=== PATIENT | female | born 1955 | race Asian ===

== ENCOUNTER 2019-10-24 18:55 | Inpatient (IN) | payer OTHER ==
[~2019-10-24] VITALS: Ht 157.5 cm; Wt 59.1 kg
[2019-10-24 20:05] LABS: PROTHROMBIN TIME 11.7 SECONDS (9.7-12.8)
[2019-10-24 20:30] LABS: BASO % 0.2 % (0.0-2.0); GRAN # 5.4 (1.4-6.5); GRAN % 83.2 % (42.2-75.2); HEMATOCRIT 35.4 % (37.0-47.0); HEMOGLOBIN 12.6 g/dl (12.5-16.0); LYMPH # 0.6 (1.2-3.4); LYMPH % 9.3 % (20.0-51.0); MEAN CELL VOLUME 84 fl (80.0-100.0); MEAN CORPUSCULAR HEMOGLOBIN 30 pg (27.0-31.0); MEAN CORPUSCULAR HGB CONC 36 g/dl (33.0-37.0); MONO # 0.5 (0.1-0.6); PLATELET COUNT 279 K/mm3 (130-400); REDCELL DISTRIBUTION WIDTH-CV 12.2 % (11.5-14.5)
[2019-10-24 21:07] LABS: ALANINE AMINOTRANSFERASE 16 U/L (4-34); ALKALINE PHOSPHATASE 82 U/L (50-136); ANION GAP 9 mmol/L (7-16); AST,SGOT 24 U/L (15-37); BILIRUBIN,TOTAL 0.8 mg/dL (0.0-1.0); BLOOD UREA NITROGEN 15 mg/dL (7-17); CALCIUM 8.5 mg/dL (8.4-10.2); CARBON DIOXIDE 26 mmol/L (22-30); CREATININE, serum 0.55 (0.52-1.25); GLUCOSE 138 mg/dL (74-106); LIPASE 62 U/L (23-300); POTASSIUM 3.1 mmol/L (3.4-5.0); SODIUM 123 mmol/L (137-145); TOTAL PROTEIN 7.3 gm/dL (6.4-8.2)
[2019-10-24 21:09] LABS: C-REACTIVE PROTEIN < 0.5 mg/dL (0.0-0.9); CHLORIDE 87 mmol/L (98-107)
--- NOTE | 2019-10-24 23:10 | NUR ---
Received patient from ER via wheelchair. Patient is alert and oriented. She went straight to the restroom to vomit. Patient has been nauseous and Zofran has been given prior transferring to room. With INT on left AC. Denies any pain. Informed patient that she's on NPO by midnight. She is independent and no problems in ambulating. Call light within reach.
[2019-10-24 23:28] VITALS: BP 153/95; PULSE 68; TEMP 98.1
[2019-10-25] VITALS (12 sets, daily range): BP systolic 112–152; BP diastolic 57–82; PULSE 71–95; TEMP 98–99.6
--- NOTE | 2019-10-25 01:00 | NUR ---
Informed patient that we will be replacing her potassium since it's low as well as her Magnesium. Instructed patient not to flush her urine as we will monitor her intake and output. Hat was placed in the toilet bowl. Patient shows understanding.
[2019-10-25 02:25] LABS: HEMOGLOBIN 11.9 g/dl (12.5-16.0)
[2019-10-25 02:31] LABS: HEMATOCRIT 33.8 % (37.0-47.0)
[2019-10-25 02:34] LABS: CALCIUM 8.2 mg/dL (8.4-10.2); CREATININE, serum 0.47 (0.52-1.25); POTASSIUM 3.2 mmol/L (3.4-5.0)
[2019-10-25 06:32] LABS: BASO % 0.2 % (0.0-2.0); GRAN # 4.7 (1.4-6.5); GRAN % 72.2 % (42.2-75.2); HEMOGLOBIN 11.7 g/dl (12.5-16.0); LYMPH # 0.9 (1.2-3.4); LYMPH % 13.7 % (20.0-51.0); MEAN CELL VOLUME 86 fl (80.0-100.0); MEAN CORPUSCULAR HEMOGLOBIN 30 pg (27.0-31.0); MEAN CORPUSCULAR HGB CONC 35 g/dl (33.0-37.0); MEAN PLATELET VOLUME 9.1 fl (7.4-10.4); MONO # 0.9 (0.1-0.6); MONO % 13.7 % (1.7-9.3); PLATELET COUNT 261 K/mm3 (130-400); RED BLOOD COUNT 3.88 M/mm3 (4.10-5.30); REDCELL DISTRIBUTION WIDTH-CV 12.3 % (11.5-14.5)
[2019-10-25 06:33] LABS: HEMATOCRIT 33.5 % (37.0-47.0)
--- NOTE | 2019-10-25 06:34 | NUR ---
Patient states she doesn't have nausea and vomiting right now. Potassium was replaced. Patient had a good urine output. Denies any pain. Will endorse to day shift nurse.
[2019-10-25 06:46] LABS: CALCIUM 8.4 mg/dL (8.4-10.2); CREATININE, serum 0.58 (0.52-1.25); POTASSIUM 3.8 mmol/L (3.4-5.0)
--- NOTE | 2019-10-25 10:11 | NUR ---
PT TO ROOM 352 PER CART WITH REPORT FROM [facility] @ 2994. PT IS A/O X3, LUNGS CLEAR, BOWEL SOUNDS ACTIVE. PT DENIES PAIN, JELLO AND WATER PROVIDED PER PT REQUEST. RESUME GENERAL DIET AND POSSIBLE DISCHARGE LATER TODAY.
[2019-10-25] MEDS ORDERED: PROTONIX 40MG T40 MG PO (10:29)
--- NOTE | 2019-10-25 10:42 | NUR ---
Patient returned from getting her procedure this AM. Denies any pain at this time. No nausea. Patient very talkative and currently resting in bed with call light in reach. Will continue to monitor.
--- NOTE | 2019-10-25 11:13 | NUR ---
Php Magento Developer attended clinical rounds with the team and patient to discharge home today. SW met with patient following rounds to discuss discharge planning. Patient lives in [place] with her , Yung (ph#[phone]). Patient receives primary care and obtains medications from [facility] with no difficulties. Patient does not use any DME and reports independence with ADLS. Patient does not have DPOA-HC and was not interested in obtaining form at this time. Patient's will package pick up patient this afternoon after work. No needs at this time.
--- NOTE | 2019-10-25 17:52 | NUR ---
Patient Health Summary, Discharge Summary and Home meds printed and reviewed with patient. Stressed importance of follow up appointments. Patient will be going to see a PCP at [facility] instead of Dr. Vern Saldaña. Belongings gathered by NATALIA/Theodora. Patient transported via walking with INSERTING PRESS OPERATOR and seatbelted for ride home with .
--- NOTE | 2019-10-25 18:27 | NUR ---
Patient now leaving the facility with TRUER PINION AND WHEEL walking her down to meet her at the ER entrance. Patient denied any questions.
== END 2019-10-25 18:29 | disposition home or self-care (01) | DRG 378 ==
LOC: COL.ER 18:55 → MEDICAL 22:36
PROVIDERS: Emergency Medicine; Nurse Practitioner Family; ADMIT Hospitalist
DX: K25.4 Chronic or unspecified gastric ulcer with hemorrhage (principal); E87.2 Acidosis; E87.1 Hypo-osmolality and hyponatremia; E87.6 Hypokalemia; R73.9 Hyperglycemia, unspecified; I10 Essential (primary) hypertension; K76.89 Other specified diseases of liver; E83.42 Hypomagnesemia; Z90.710 Acquired absence of both cervix and uterus
CPT/HCPCS: 99222-AI; 99239; C9113; J1170; J2405; J2704; J3475; J3480; J7030; Q9967

== ENCOUNTER 2019-12-18 13:25 | Emergency (ER) | payer MEDICARE, OTHER ==
[~2019-12-18] VITALS: Ht 157.5 cm; Wt 59.1 kg
[~2019-12-18 13:25] MED LIST: PROTONIX 40MG T40 MG PO
[2019-12-18 13:28] VITALS: TEMP 97.9
[2019-12-18 14:23] LABS: BASO % 0.2 % (0.0-2.0); GRAN # 4.3 (1.4-6.5); GRAN % 81.6 % (42.2-75.2); HEMATOCRIT 37.8 % (37.0-47.0); HEMOGLOBIN 13.1 g/dl (12.5-16.0); LYMPH # 0.6 (1.2-3.4); LYMPH % 11.9 % (20.0-51.0); MEAN CELL VOLUME 85 fl (80.0-100.0); MEAN CORPUSCULAR HEMOGLOBIN 30 pg (27.0-31.0); MEAN CORPUSCULAR HGB CONC 35 g/dl (33.0-37.0); MEAN PLATELET VOLUME 8.8 fl (7.4-10.4); MONO # 0.3 (0.1-0.6); MONO % 6.1 % (1.7-9.3); PLATELET COUNT 272 K/mm3 (130-400); RED BLOOD COUNT 4.43 M/mm3 (4.10-5.30); REDCELL DISTRIBUTION WIDTH-CV 12.6 % (11.5-14.5)
[2019-12-18 14:37] LABS: ALANINE AMINOTRANSFERASE 18 U/L (4-34); ALBUMIN 4.5 gm/dL (3.5-5.0); ALKALINE PHOSPHATASE 99 U/L (50-136); ANION GAP 15 mmol/L (7-16); AST,SGOT 26 U/L (15-37); BILIRUBIN,TOTAL 0.9 mg/dL (0.0-1.0); BLOOD UREA NITROGEN 14 mg/dL (7-17); CALCIUM 9.5 mg/dL (8.4-10.2); CARBON DIOXIDE 19 mmol/L (22-30); CHLORIDE 99 mmol/L (98-107); CREATININE, serum 0.65 (0.52-1.25); GLUCOSE 123 mg/dL (74-106); LIPASE 129 U/L (23-300); POTASSIUM 3.4 mmol/L (3.4-5.0); SODIUM 133 mmol/L (137-145); TOTAL PROTEIN 8.3 gm/dL (6.4-8.2)
[2019-12-18 14:48] LABS: TROPONIN-I < 0.012 ng/mL (0.000-0.035)
[2019-12-18] MEDS ORDERED: ZOFRAN ODT4 MG PO (14:48)
[2019-12-18] MEDS ORDERED: PHENERGAN 25 TA25 MG PO (14:48)
[2019-12-18 15:25] LABS: COLLECTION METHOD CLEAN CATCH
[2019-12-18 15:44] LABS: BUDDING YEAST Present /hpf; MUCOUS Present /lpf; PH 7 (5-8); SQUAMOUS EPITHELIAL None Seen /hpf; URINE APPEARANCE Hazy; URINE BACTERIA None Seen /hpf; URINE BILIRUBIN Negative (NEGATIVE); URINE BLOOD Negative (NEGATIVE); URINE COLOR Straw; URINE GLUCOSE Negative (NEGATIVE); URINE KETONE 2+ (NEGATIVE); URINE LEUKOCYTE ESTERASE Negative (NEGATIVE); URINE NITRATE Negative (NEGATIVE); URINE PROTEIN(semi-quant) Negative (NEGATIVE); URINE RBC 0-2 /hpf; URINE UROBILINOGEN Negative (NEGATIVE)
[2019-12-18 16:10] VITALS: BP 154/90; PULSE 75
== END 2019-12-18 16:10 | disposition home or self-care (01) ==
LOC: EDBD 13:25 → COL.ER 13:25
PROVIDERS: Emergency Medicine
DX: E86.9 Volume depletion, unspecified (principal); R11.2 Nausea with vomiting, unspecified; K25.7 Chronic gastric ulcer without hemorrhage or perforation; I10 Essential (primary) hypertension; Z98.41 Cataract extraction status, right eye
CPT/HCPCS: C9113; J2405; J7030

== ENCOUNTER → 2021-11-05 | Outpatient (CLI) | payer MEDICARE ==
[~2021-11-05] MED LIST changes: +PHENERGAN 25 TA25 MG PO; +ZOFRAN ODT4 MG PO
== END ==
LOC: COL.RAD 11-01 09:45
DX: K76.89 Other specified diseases of liver (principal)

== ENCOUNTER → 2024-02-20 | Outpatient (CLI) | payer MEDICARE, OTHER | LOC: COL.RAD 13:11 | DX: K44.9 Diaphragmatic hernia without obstruction or gangrene (principal); K21.9 Gastro-esophageal reflux disease without esophagitis ==